=== PATIENT | female | born 1970 | race Caucasian/White ===

== ENCOUNTER → 2016-08-23 | Outpatient (CLI) | payer OTHER ==
--- NOTE | 2016-08-23 20:15 | DX ---
Wrist Minimum of 3 Views Left History: Pain. Comparison exam: None available. Findings: Alignment is normal. Joint spaces are maintained. No fracture identified. Impression: Negative radiographs of the left wrist..
== END ==
LOC: FIMAGING 19:55
PROVIDERS: ATTEND Family Medicine
DX: M25.532 Pain in left wrist (principal)

== ENCOUNTER → 2018-07-02 | Outpatient (CLI) | payer OTHER | LOC: FIMAGING 07:35 | PROVIDERS: ATTEND Family Medicine | DX: Z12.31 Encounter for screening mammogram for malignant neoplasm of breast (principal); Z80.3 Family history of malignant neoplasm of breast ==